=== PATIENT | male | born 1940 | race Caucasian/White ===

== ENCOUNTER 2019-01-09 12:43 | Outpatient (CLI) | payer MEDICARE, OTHER ==
--- NOTE | 2019-01-09 14:40 | RAD ---
CERVICAL SPINE AP AND LATERAL STANDARD: Date: 01/09/19 HISTORY: Surgery follow-up, M54.2 neck pain. COMPARISON: Radiograph dated 02/27/17. FINDINGS: New right-sided unilateral posterior spinal fusion hardware at facets of C3-C4. ACDF hardware is jovani lar. There is degenerative disc space narrowing at C4-5, C5-6, and C6-7. IMPRESSION: Satisfactory postoperative appearance. POS: BRENT
== END 2019-01-09 12:44 | disposition home or self-care (01) ==
LOC: TBSIIMAG 12:43
PROVIDERS: ATTEND Neurological Surgery
DX: M54.2 Cervicalgia (principal); Z98.890 Other specified postprocedural states
CPT/HCPCS: 72040

== ENCOUNTER 2019-04-02 14:18 | Outpatient (CLI) | payer MEDICARE, OTHER ==
--- NOTE | 2019-04-02 16:02 | RAD ---
Exam: 4 views cervical spine Comparison 01/09/2019 HISTORY: Follow-up surgery FINDINGS: Redemonstration of a anterior fusion plate transvertebral body screw at C3 and C4. Associat ed prosthesis at C3-C4. Associated posterior fusion hardware at C3-C4. There appears to be redemonstration of anterolisthesis of the for upon C5, measuring 1.3 mm. No signi ficant change alignment in the neutral position. Severe degenerative disc disease at C5-C6 and C6-C7 is redemonstrated. IMPRESSION: Stable cervical fusion as described above.
== END 2019-04-02 14:19 | disposition home or self-care (01) ==
LOC: TBSIIMAG 14:18
PROVIDERS: ATTEND Neurological Surgery
DX: M50.30 Other cervical disc degeneration, unspecified cervical region (principal); M48.02 Spinal stenosis, cervical region; Z98.1 Arthrodesis status
CPT/HCPCS: 72040